=== PATIENT | female | born 1975 | race Two or more races ===

== ENCOUNTER 2017-04-18 21:15 | Inpatient (IN) | payer OTHER ==
[~2017-04-18] VITALS: Ht 149.9 cm; Wt 55.1 kg
--- NOTE | ~2017-04-18 | OR ---
PATIENT'S NAME: [facility] AGE: 41 Y [address] ROOM: [place] [address] LOCATION: [facility] [place] ADMIT DATE: 04/18/2017 OR/Procedure Report DISCHARGE DATE: FAMILY PHYSICIAN: MELCHOR HAGAN ATTENDING PHYSICIAN: Antonio Stevenson SURGEON: Antonio Stevenson MD INDUSTRIAL TRUCK DRIVER: None. DATE OF PROCEDURE: 04/19/2017 PREOPERATIVE DIAGNOSES: 1. Cholecystitis. 2. Cholelithiasis. POSTOPERATIVE DIAGNOSES: 1. Cholecystitis. 2. Cholelithiasis. PROCEDURE PERFORMED: Laparoscopic cholecystectomy. REFERRING PHYSICIAN: Dr. Cardenas in [place]. ANESTHESIA: General with 15 mL 0.5% Marcaine. SPECIMENS: Gallbladder with large solitary stone and mild gallbladder wall inflammatory changes. INDICATIONS: The patient is a pleasant 41-year-old young lady presenting at [place] [facility], worked up by Dr. Cardenas and found to have her second attack of biliary colic with cholecystitis and cholelithiasis noted on CT scan. Her symptoms were not relieved with pain medication, and she was referred for urgent gallbladder removal. DESCRIPTION OF PROCEDURE: After informed consent, the patient was taken to the operating room, and after general endotracheal anesthesia, the patient's abdomen was prepped and draped into a sterile field. A time-out was performed. We confirmed the patient, planned procedure, and administration of preoperative antibiotics. Local anesthetic infiltrated prior to each incision. The first one was made below the umbilicus and carried down to identify the anterior fascia through which a Veress needle was inserted and preperitoneum created. Safe entry was noted. Trocar and laparoscope were inserted under direct vision. The remaining trocars were placed. The gallbladder was distended. It had mild inflammatory changes. It was retracted cephalad and laterally. There was obvious large gallstone in the infundibulum. We milked it back. We then grabbed it. We scored the edematous fatty tissue of the triangle. We took down the lateral gallbladder PATIENT'S NAME: CEFERINO CABALLERO [facility] AGE: 41 Y [address] ROOM: [place] [address] LOCATION: [facility] [place] ADMIT DATE: 04/18/2017 OR/Procedure Report DISCHARGE DATE: FAMILY PHYSICIAN: MELCHOR HAGAN ATTENDING PHYSICIAN: Antonio Stevenson reflection on the liver bed in order to open up the triangle. We isolated out a small caliber cystic duct and cystic artery. We clipped in each individually x4 and divided with one clip remaining on the specimen side. The gallbladder was removed from the liver bed, placed into an EndoCatch bag, and brought out through the fascial defect at the umbilicus. We irrigated the right upper quadrant. Hemostasis was noted. No evidence of bile leak. We removed the trocars, released the pneumoperitoneum, and closed the midline fascia defects with 0 Vicryl. Skin closed with subcuticular 4-0 Vicryl. Steri-Strips and sterile dressings were applied. The patient tolerated the procedure well and transferred to the recovery room in stable condition. ANTONIO STEVENSON MD WTS/modl /[id number] d: t: 04/19/17 1305, OPERATIVE SUMMARY
--- NOTE | ~2017-04-18 | HP ---
PATIENT'S NAME: CEFERINO CABALLERO [facility] AGE: 41 Y [address] ROOM: [place] [address] [place] [facility] [place]: 04/18/2017 History & Physical DISCHARGE DATE: FAMILY PHYSICIAN: MELCHOR HAGAN ATTENDING PHYSICIAN: Antonio Stevenson DATE OF SERVICE: REFERRING PHYSICIAN: Dr. Cardenas from [place]. CHIEF COMPLAINT: Abdominal pain. REVIEW OF RECORD: Ceferino Caballero is a pleasant 41-year-old young lady, who in the last 24 hours has developed her second attack of abdominal pain in the epigastrium, right upper quadrant, associated with nausea, vomiting, and some loose stools. She has some suprapubic discomfort, but no dysuria or hematuria. She says she has a history of kidney stones, but does not feel like this. She has had no previous abdominal operations, no abdominal trauma. She does not drink alcohol. Her only abdominal operations have been tubal ligation and appendectomy. The patient states that the attack a month ago did not last this long. The patient underwent evaluation in [place] and found to have normal white count. Her liver functions were normal except for mild elevation in AST and ALT. Her total bilirubin was normal. A CT scan was performed, which showed no evidence of nephrolithiasis or pancreatitis or evidence of bowel disease. It did show a 1.9 cm gallstone with some 4 mm mild thickening of the gallbladder wall and some contraction. No pericholecystic fluid. No hepatic duct dilatation. The patient was given the option of proceeding with gallbladder removal if the symptoms do not relieve versus elective clinic visit to consider gallbladder removal. They watched her in [place], she still had pain, so they sent her down here for surgical evaluation. PAST MEDICAL HISTORY: MEDICATIONS: She has no medications. ALLERGIES: NO ALLERGIES. OPERATIONS: Tubal ligation and appendectomy. PATIENT'S NAME: CEFERINO CABALLERO [facility] AGE: 41 Y [address] ROOM: [place] [address] [place] [facility] [place]: 04/18/2017 History & Physical DISCHARGE DATE: FAMILY PHYSICIAN: MELCHOR HAGAN ATTENDING PHYSICIAN: Antonio Stevenson SOCIAL HISTORY: She is ; works for the [employer]; has 3 children. Does not smoke or drink. FAMILY HISTORY: Unknown due to adoption. REVIEW OF SYSTEMS: She denies any fevers, chills, or jaundice. No change in her vision or hearing. No problems swallowing. Denies any blood in her emesis. Denies any dysphagia. Denies any shortness of breath or productive cough. Denies any heart disease. Denies any dysuria or hematuria. No blood in her stools. No swollen joints. No back pain. PHYSICAL EXAMINATION: GENERAL: She is a 41-year-old young lady, who appears to be in mild discomfort. HEENT: Her head is normocephalic. Sclerae are nonicteric. Mucous membranes are dry. NECK: Supple. There is no adenopathy. LUNGS: Clear to auscultation. HEART: Normal sinus rhythm. ABDOMEN: Mildly obese. Positive bowel sounds. Surgical scar noted on the umbilicus. No evidence of abdominal wall hernia. She is mildly tender in the right subcostal location, but no guarding. No hepatomegaly to percussion. EXTREMITIES: She has 2/2 femoral and posterior tibial pulses. No peripheral edema. IMPRESSION: Biliary colic, second attack, with evidence of cholelithiasis and mild cholecystitis. I discussed operative removal; explained the procedure, benefits, and risks including but not limited to abdominal wall hernias, infection, bleeding requiring transfusion or reoperation, common bile duct injury, bile leak, shortness of breath, pneumonia, pulmonary embolism, and loss of life. We talked about the possibility of open technique as well as a postop ERCP if indication of a common duct stone, which we do not have at this time. I answered her and her 's questions, and they agreed to proceed. Thank you very much for allowing me to participate in her care. ANTONIO STEVENSON MD PATIENT'S NAME: CEFERINO CABALLERO [facility] AGE: 41 Y [address] ROOM: [address] [address] [place] [facility] [place]: 04/18/2017 History & Physical DISCHARGE DATE: FAMILY PHYSICIAN: MELCHOR HAGAN ATTENDING PHYSICIAN: Antonio Stevenson WTS/modl /[id number] D: T: [id number] HISTORY & PHYSICAL
--- NOTE | 2017-04-19 00:01 | NUR ---
ADMISSION NOTE: Patient had eaten some food on Thursday04/17/17, and started to have severe pain. Came to [facility] on thursday, and they did CT and UA and sent pt here. Plan is for lap cindy in AM. No home meds. No alleriges. IV to L) AC. at bedside. History of kidney stones, appy, 3 children and tubal ligation. Having R) upper quad pain
--- NOTE | 2017-04-19 04:06 | NUR ---
Significant Event: Patient alert and orenited x4. Up with stand by assist. Call appropriately. IV from [place] [facility] to L) AC with d51/2 NS at 125ml/hr.3 mg morphine given x1 around 2315. Voiding fine. Denies nausea. Plan for lap cindy this morning. Pre op checklist started and consents signed. NPO since arrival to floor. Vitals stabel and on room air. at bedside. No significant health history. Follow up: Monitor pain
[2017-04-19 06:02] LABS: BASOPHIL % 0.5 %; EOSINOPHIL # 0.2 K/uL (0.0-0.5); EOSINOPHIL % 3.1 %; HEMATOCRIT 35.8 % (33.0-46.0); HEMOGLOBIN 11.9 g/dL (10.0-15.0); IMMATURE GRANULOCYTE % 0.5 %; LYMPHOCYTE # 1.6 K/uL (0.8-4.0); LYMPHOCYTE % 20.9 %; MCH 26.4 pg (27.0-34.0); MCHC 33.2 gm/dL (32.0-36.5); MCV 79.6 fl (83.0-98.0); MONOCYTE # 0.8 K/uL (0.0-1.0); MONOCYTE % 10.5 %; MPV 9.6 fl (9.4-12.4); NEUTROPHIL # (ANC) 5.1 K/uL (1.8-7.8); NEUTROPHIL % 64.5 %; NRBC % 0 /100WBC (0-0.00); PLATELET COUNT 318 K/uL (150-450); RDW-CV 12.9 % (11.9-14.6); WBC 7.8 K/uL (4.0-11.0)
[2017-04-19 06:18] LABS: ALBUMIN 3.2 gm/dL (3.5-5.0); ALK PHOS 94 IU/L (33-138); ALT 38 IU/L (12-78); ANION GAP 10.5 (10.0-19.0); AST 24 IU/L (10-40); BLOOD UREA NITROGEN 9 mg/dL (6-24); CALCIUM 7.9 mg/dL (8.5-10.5); CHLORIDE 109 mMol/L (96-110); CO2 23 mMol/L (22-32); CREATININE 0.6 mg/dL (0.5-1.1); POTASSIUM 3.5 mMol/L (3.7-5.1); SODIUM 139 mMol/L (135-145); TOTAL BILIRUBIN 0.5 mg/dL (0.0-1.5); TOTAL PROTEIN 6.6 g/dL (6.0-8.4)
[2017-04-19] MEDS ORDERED: NORCO 5-325 TA1 EACH PO (17:17)
--- NOTE | 2017-04-19 20:11 | NUR ---
Significant event: Went to surgery and returned, dismissed to home. Dressings changed to abdomen at dismissal umbilicus saturated and other 3 dressings with moderate amount of drainage. Pain controlled with norco. tolerated regular food and drinking and voiding good.
== END 2017-04-19 18:40 | disposition disaster alternative care site (69) | DRG 419 ==
LOC: GMSU 22:20
PROVIDERS: ADMIT Surgery
PROC: BF101ZZ Fluoroscopy of Bile Ducts using Low Osmolar Contrast (ICD-10-PCS; principal; 2017-04-19)
PROC: 0FT44ZZ Resection of Gallbladder, Percutaneous Endoscopic Approach (ICD-10-PCS; 2017-04-19)
DX: K80.10 Calculus of gallbladder with chronic cholecystitis without obstruction (principal); Z87.442 Personal history of urinary calculi
CPT/HCPCS: J0694; J1100; J2270; J2405; J3010; J7030